=== PATIENT | female | born 1940 | race Caucasian/White ===

== ENCOUNTER → 2017-01-10 | Outpatient (CLI) | payer OTHER ==
[~2017-01-10] MED LIST: AMLO-110 PO; ASPCH81X PO; ASPI81TA28 PO; BENA20TA14 PO; BISO2.5T PO; CALC500T83 PO; CALCCAP15 PO; LEVO50TA PO; MAGN1TAB28 PO; MULTCHW3 PO; SIMV20TA2 PO; ZINC1TAB PO
[2017-01-10 13:38] LABS: BASO % 0.4 %; BASO ABS # 0.02 K/uL (0-0.2); COMPLETE YES; EOS % 1.8 %; HEMATOCRIT 46.1 % (37-47); IG% 0.4 %; LYMPH ABS # 1.47 K/uL (1.2-3.4); MEAN CELL VOLUME 92.9 fL (80-100); MEAN CORPUSCULAR HGB CONC 33.4 g/dl (32-36); MEAN PLATELET VOLUME 11.2 fL (7.4-10.4); MONO % 7.5 %; NEUT % 62.9 %; PLATELET COUNT 318 K/uL (130-400); RED BLOOD COUNT 4.96 M/uL (4.2-5.4); WHITE BLOOD COUNT 5.45 K/uL (4.8-10.8)
[2017-01-10 13:49] LABS: PROTHROMBIN TIME (PATIENT) 10.3 SECONDS (9.0-12.0)
[2017-01-10 14:03] LABS: BLOOD UREA NITROGEN 13 mg/dl (7-18); CREATININE 0.73 mg/dl (0.60-1.20); GLUCOSE 104 mg/dl (70-99)
[2017-01-10 14:04] LABS: ALT/SGPT 49 U/L (12-78); AST/SGOT 27 U/L (15-37); BUN/CREATININE RATIO 18.4 (10-20); CARBON DIOXIDE 27 mmol/L (21-32); CHLORIDE 106 mmol/L (98-107); CHOLESTEROL 175 mg/dl (0-200); POTASSIUM 4.3 mmol/L (3.5-5.1); SODIUM 140 mmol/L (136-145); TRIGLYCERIDES 121 mg/dl (0-150); VERY LOW DENSITY LIPOPROT CALC 24 mg/dl
[2017-01-10 14:07] LABS: ALB/GLOB RATIO 1.1 (0.9-2); ALKALINE PHOSPHATASE 95 U/L (45-117); CHOLESTEROL/HDL RATIO 3.7; HDL CHOLESTEROL 47 mg/dl; LDL CHOLESTEROL CALCULATED 104 mg/dl
[2017-01-10 15:02] LABS: CALCIUM 10.1 mg/dl (8.5-10.1)
== END | disposition home or self-care (01) ==
LOC: C.LABBC 09:19
PROVIDERS: ATTEND Physician Assistant Medical
DX: Z01.818 Encounter for other preprocedural examination (principal); I10 Essential (primary) hypertension

== ENCOUNTER → 2017-02-18 | Day surgery (SDC) | payer OTHER ==
[2017-01-24 07:41] VITALS: BMI 27.0
[~2017-02-18] VITALS: Ht 162.6 cm; Wt 70.9 kg
[~2017-02-18] MED LIST changes: -ASPI81TA28 PO; -CALCCAP15 PO; +LIDOCAINE HCL 2% 2 ML VIAL (20MG/ML) ONE; -MAGN1TAB28 PO; -MULTCHW3 PO; +PROPOFOL IV EMULSION 10 MG/ML 20 ML VIAL IV ONE; -ZINC1TAB PO
[2017-02-18 13:16] VITALS: Ht 162.6 cm; Wt 70.9 kg
--- NOTE | 2017-02-18 13:44 | Endo History and Physical ---
History & Physical Date of Service: Feb 18, 2017. Chief Complaint: screening, hx diverticulosis Referring Physician: Dr. Samuel Booth History of Present Illness 76 yo CF who presents for screening colonoscopy. Past Medical History High Cholesterol, Hypertension, Thyroid Disease Past Surgical History Hx Cardiac Surgery: No Hx Internal Defibrillator: No Hx Pacemaker: No Hx Abdominal Surgery: Yes (PARTIAL HYSTERECTOMY) Hx of Implantable Prosthesis: No Hx Post-Op Nausea and Vomiting: No Hx Cancer Surgery: No Hx Thoracic Surgery: No Hx Orthopedic: Yes (RT KNEE ARTHROSCOPY) Hx Urinary Tract Surgery: No Family History None Social History Smoking Status: Never Smoker Hx Substance Use: No Hx Alcohol Use: Yes (VERY RARELY) Allergies Coded Allergies: Cefaclor (Verified Allergy, Unknown, HIVES, 02/18/17) Current Medications Reported Home Medications Medications Dose Route/Sig Max Daily Dose Days Date Category Dose Instructions Aspirin Chewable (Aspirin) 81 Mg Chew 81 Mg PO HS 01/24/17 Reported Zocor (Simvastatin) 20 Mg Tab 20 Mg PO QPM 12/28/13 Reported Synthroid (Levothyroxine Sodium) 50 Mcg Tab 50 Mcg PO QAM 12/28/13 Reported Calcium 500 Mg Tab 500 Mg PO QAM 12/28/13 Reported Bisoprolol Fumarate/[place] (Bisoprolol & Hydrochlorothiazi) 1 Tab Tab 1 Tab PO QAM 12/28/13 Reported 2.5-6.25 MG DOSE Lotensin (Benazepril HCl) 20 Mg Tab 20 Mg PO QAM 12/28/13 Reported Norvasc (Amlodipine Besylate) 5 Mg Tab 5 Mg PO QAM 12/28/13 Reported Vital Signs Weight (Kilograms): 70.91 Height (Feet): 5 Height (Inches): 4 Date Time Temp Pulse Resp B/P (MAP) Pulse Ox O2 Delivery O2 Flow Rate FiO2 02/18/17 13:26 36.4 64 20 144/69 (94) 95 Room Air Physical Exam General Appearance: WD/WN, no apparent distress Respiratory/Chest: Auscultation: breath sounds normal Cardiovascular: Heart Auscultation: RRR Abdomen: Bowel Sounds: normal Inspection & Palpation: soft, non-distended, no tenderness, guarding & rebound Assessment and Plan Assessment: 76 yo CF who presents for screening colonoscopy. Plan: Proceed with colonoscopy.
--- NOTE | 2017-02-18 14:20 | Discharge Instructions ---
Endoscopy Patient Instructions Date / Procedure(s) Performed Feb 18, 2017. Colonoscopy Allergy Information Coded Allergies: Cefaclor (Verified Allergy, Unknown, HIVES, 02/18/17) Discharge Date / Findings Feb 18, 2017. Colon polyps Diverticulosis Internal hemorrhoids Medication Instructions OK to resume all medications today as prescribed Reported Home Medications Medications Dose Route/Sig Max Daily Dose Days Date Category Dose Instructions Aspirin Chewable (Aspirin) 81 Mg Chew 81 Mg PO HS 01/24/17 Reported Zocor (Simvastatin) 20 Mg Tab 20 Mg PO QPM 12/28/13 Reported Synthroid (Levothyroxine Sodium) 50 Mcg Tab 50 Mcg PO QAM 12/28/13 Reported Calcium 500 Mg Tab 500 Mg PO QAM 12/28/13 Reported Bisoprolol Fumarate/[place] (Bisoprolol & Hydrochlorothiazi) 1 Tab Tab 1 Tab PO QAM 12/28/13 Reported 2.5-6.25 MG DOSE Lotensin (Benazepril HCl) 20 Mg Tab 20 Mg PO QAM 12/28/13 Reported Norvasc (Amlodipine Besylate) 5 Mg Tab 5 Mg PO QAM 12/28/13 Reported Provider Instructions Activity Restrictions - No exercising or heavy lifting for 24 hours. - Do not drink alcohol the day of the procedure. - Do not drive a car or operate machinery until the day after the procedure. - Do not make any important decisions or sign important papers in 24 hours after the procedure. Following Day: - Return to full activity which may include returning to work/school. Diet Start your diet with liquids and light foods (jello, soup, juice, toast). Then eat your usual diet if not nauseated. Treatment For Common After Affects For mild abdominal pain, bloating, or excessive gas: - Rest - Eat lightly - Lie on right side Follow-Up Information Follow-up with Dr. Samuel Booth as scheduled Anesthesia Information What You Should Know You have had a procedure that required some medicine to reduce anxiety and discomfort. This treatment is called moderate sedation. After receiving the treatment, you may be sleepy, but you will be able to breathe on your own. The effects of the treatment may last for several hours. Follow these instructions along with Activity/Diet recommendations noted above: * Do NOT do anything where dizziness or clumsiness would be dangerous. * Rest quietly at home today, then you can be up and about tomorrow. * Have a responsible person stay with you the rest of today. * You may have had an I.V. today. If so, you may take the dressing off later today. Recommendations Call your doctor if: * Trouble breathing * Continuous vomiting for more than 24 hours * Temperature above 101 degrees * Severe abdominal pain or bloating * Pain not relieved by pain medicine ordered * There is increased drainage or redness from any incision * A large amount of rectal bleeding greater than 2-3 tablespoons. (If you had a polyp/s removed or have hemorrhoids, a small amount of blood - from the rectum is to be expected.) * You have any unanswered questions or concerns. IN THE EVENT OF A SERIOUS EMERGENCY, GO TO THE NEAREST EMERGENCY ROOM Your discharge instructions were prepared by provider Jhony Dooley. Patient Instructions Signature Page Luba Marin Patient (or Guardian) Signature/Date: I have read and understand the instructions given to me by my caregivers. Caregiver/RN/Doctor Signature/Date: The above-named patient and/or guardian has received patient instructions on this date. + Original Patient Signature Page (only) stays with chart. Please make copy for patient.
--- NOTE | 2017-02-18 14:25 | GI REPORT ---
Procedure Date: 02/18/2017 1:50 PM Procedure: Colonoscopy Indications: High risk colon cancer surveillance: Personal history of colonic polyps Medicines: Monitored Anesthesia Care Complications: No immediate complications. Estimated Blood Loss: Estimated blood loss: none. Procedure: Pre-Anesthesia Assessment: - Prior to the procedure, a History and Physical was performed, and patient medications and allergies were reviewed. The patient's tolerance of previous anesthesia was also reviewed. The risks and benefits of the procedure and the sedation options and risks were discussed with the patient. All questions were answered, and informed consent was obtained. Prior Anticoagulants: The patient has taken aspirin, last dose was 5 days prior to procedure. ASA Grade Assessment: II - A patient with mild systemic disease. After reviewing the risks and benefits, the patient was deemed in satisfactory condition to undergo the procedure. After I obtained informed consent, the scope was passed under direct vision. Throughout the procedure, the patient's blood pressure, pulse, and oxygen saturations were monitored continuously. The scope was introduced through the anus and advanced to the terminal ileum. The colonoscopy was performed without difficulty. The patient tolerated the procedure well. The quality of the bowel preparation was good. The terminal ileum, ileocecal valve, appendiceal orifice, and rectum were photographed. Findings: A 5 mm polyp was found in the ascending colon. The polyp was sessile. The polyp was removed with a hot snare. Resection and retrieval were complete. A 7 mm polyp was found in the sigmoid colon. The polyp was flat. The polyp was removed with a piecemeal technique using a hot snare. Resection and retrieval were complete. Scattered small-mouthed diverticula were found in the entire colon. Non-bleeding internal hemorrhoids were found during retroflexion. The hemorrhoids were small. Impression: - One 5 mm polyp in the ascending colon, removed with a hot snare. Resected and retrieved. - One 7 mm polyp in the sigmoid colon, removed piecemeal using a hot snare. Resected and retrieved. - Diverticulosis in the entire examined colon. - Non-bleeding internal hemorrhoids. Recommendation: - Resume previous diet. - Continue present medications. - Repeat colonoscopy for surveillance based on pathology results. - Return to primary care physician as previously scheduled. Jhony Dooley DO 02/18/2017 2:24:35 PM This report has been signed electronically. Note Initiated On: 02/18/2017 1:50 PM I attest to the content of the Intraoperative Record and orders documented therein, exceptions below
[2017-02-18 14:51] VITALS: BP 135/70; PULSE 58; O2SAT 97
--- NOTE | 2017-02-18 14:53 | Anesthesiology Progress Note ---
Anesthesia Post Op Note Date & Time Feb 18, 2017 at 14:53 Vital Signs Pain Intensity: 0 Vital Signs Past 12 Hours Date Time Temp Pulse Resp B/P (MAP) Pulse Ox O2 Delivery O2 Flow Rate FiO2 02/18/17 14:36 60 20 113/64 (80) 96 Room Air 02/18/17 14:21 60 16 108/64 (79) 95 Room Air 02/18/17 13:26 36.4 64 20 144/69 (94) 95 Room Air Notes Mental Status: alert / awake / arousable, participated in evaluation Pt Amnestic to Procedure: Yes Nausea / Vomiting: adequately controlled Pain: adequately controlled Airway Patency, RR, SpO2: stable & adequate BP & HR: stable & adequate Hydration State: stable & adequate Anesthetic Complications: no major complications apparent
== END | disposition home or self-care (01) ==
LOC: C.GI 12:55
PROVIDERS: ATTEND Internal Medicine
DX: Z12.11 Encounter for screening for malignant neoplasm of colon (principal); D12.2 Benign neoplasm of ascending colon; D12.5 Benign neoplasm of sigmoid colon; K64.8 Other hemorrhoids; K57.90 Diverticulosis of intestine, part unspecified, without perforation or abscess without bleeding; Z86.010 Personal history of colon polyps; E78.00 Pure hypercholesterolemia, unspecified; I10 Essential (primary) hypertension; E07.9 Disorder of thyroid, unspecified; Z79.82 Long term (current) use of aspirin; Z90.710 Acquired absence of both cervix and uterus

== ENCOUNTER → 2017-03-21 | Outpatient (CLI) | payer OTHER ==
[~2017-03-21] MED LIST changes: -LIDOCAINE HCL 2% 2 ML VIAL (20MG/ML) ONE; -PROPOFOL IV EMULSION 10 MG/ML 20 ML VIAL IV ONE
--- NOTE | 2017-03-22 13:59 | MAMMOGRAPHY REPORT ---
BILATERAL DIGITAL SCREENING MAMMOGRAM TOMOSYNTHESIS WITH CAD: 03/21/2017 CLINICAL HISTORY: Routine screening. Patient has no complaints. TECHNIQUE: Breast tomosynthesis in addition to standard 2D mammography was performed. Current study was also evaluated with a Computer Aided Detection (CAD) system. COMPARISON: Comparison is made to exams dated: 03/20/2016 mammogram, 01/06/2015 mammogram, 07/31/2013 ammogram - [facility], 07/29/2012 mammogram, 04/09/2011 mammogram, and [facility]. BREAST COMPOSITION: The tissue of both breasts is heterogeneously dense, which may obscure small mas ses. FINDINGS: No suspicious masses, calcifications, or areas of architectural distortion are noted in ei ther breast. There has been no significant interval change compared to prior exams. Small bilateral circumscribed benign-appearing masses are again noted and likely represent cysts, with cyst seen on m ultiple prior ultrasound exams. 2 biopsy marker clips are again noted in the left breast. Bilateral benign-appearing calcifications are not significantly changed. IMPRESSION: ACR BI-RADS CATEGORY 2: BENIGN There is no mammographic evidence of malignancy. A 1 year screening mammogram is recommended. The pa tient will receive written notification of the results. Approximately 10% of breast cancers are not detected with mammography. A negative mammographic report should not delay biopsy if a clinically suggestive mass is present. Yadi Ramirez M.D. /:03/21/2017 15:25:56 Automotive Repair Technician: Karina SCHAFFER(Duran)(M), [facility] letter sent: Normal 1/2 BI-RADS Code: ACR BI-RADS Category 2: Benign
== END | disposition home or self-care (01) ==
LOC: C.MAMM 11:32
PROVIDERS: ATTEND Internal Medicine
DX: Z12.31 Encounter for screening mammogram for malignant neoplasm of breast (principal)

== ENCOUNTER 2017-06-22 10:15 | Emergency (ER) | payer OTHER ==
[~2017-06-22] VITALS: Ht 152.4 cm
[2017-06-22 10:20] VITALS: TEMP 36.4; Ht 152.4 cm
[2017-06-22] MEDS ORDERED: SOAP SUDS ENEMA PR STA (10:38)
--- NOTE | 2017-06-22 10:53 | EMERGENCY ROOM VISIT NOTE ---
History Report prepared by Mark: Ranjeet Friedman Under the Supervision of: Dr. Hardy Bryant M.D. First contact with patient: 10:25 Chief Complaint: GI ASSESSMENT Stated Complaint: BOWEL Nursing Triage Summary: pt reports rectal pain states she feels like she has brick there. has been eating lots of cheese. has used dulcolax last night and ate prunes this am no relief History of Present Illness The patient is a 76 year old female who presents to the Emergency Room with complaints of persistent constipation for the past few days. The patient states that she feels like she has been backed up, and she used Dulcolax last night, and she had coffee and prune juice this morning. She feels like there is a stool ball there. She denies any nausea, vomiting, abdominal pain, leg swelling , fevers, chills, chest pain, and shortness of breath. The patient denies any history of bowel obstructions. The patient states that she has had a partial hysterectomy, and she has a history of hemorrhoids found during a colonoscopy. Source of History: patient Onset: a few days Position: other (global) Quality: other (constipation) Timing: other (persistent) Associated Symptoms: No fevers, No chills, No chest pain, No SOB, No nausea , No vomiting, No abdominal pain Review of Systems See HPI for pertinent positives & negatives. A total of 6 systems reviewed and were otherwise negative. Past Medical & Surgical Medical Problems: (1) Hemorrhoids Surgical Problems: (1) History of partial hysterectomy Social History Smoking Status: Never Smoker Marital Status: Occupation Status: retired Current/Historical Medications Scheduled Amlodipine (Norvasc), 5 MG PO QAM Aspirin (Aspirin Chewable), 81 MG PO HS Benazepril (Lotensin), 20 MG PO QAM Bisoprolol & Hydrochlorothiazi (Bisoprolol Fumarate/[place]), 1 TAB PO QAM Calcium Carbonate-Cholecalcife (Calcium Plus Vitamin D3), 2 CAP PO DAILY Levothyroxine Sodium (Synthroid), 50 MCG PO QAM Magnesium-Zinc (Magnesium/Chelated Zinc), 1 TAB PO DAILY Multiple Vitamins W/ Minerals (Centrum), 1 TAB PO DAILY Simvastatin (Zocor), 20 MG PO QPM Allergies Coded Allergies: Cefaclor (Verified Allergy, Unknown, HIVES, 06/22/17) Physical Exam Vital Signs Date Time Temp Pulse Resp B/P (MAP) Pulse Ox O2 Delivery O2 Flow Rate FiO2 06/22/17 11:46 69 18 189/103 96 06/22/17 10:20 36.4 73 18 187/106 95 Room Air Physical Exam GENERAL: Patient is well appearing and in minimal distress. HEENT: No acute trauma, normocephalic atraumatic, mucous membranes moist, no nasal congestion, no scleral icterus. NECK: No stridor, no adenopathy, no meningismus, trachea is midline. LUNGS: No dyspnea. Clear to auscultation and equal bilaterally. No wheeze, no rhonchi. HEART: Regular rate and rhythm. No murmurs, rubs, gallops appreciated. ABDOMEN: Soft, nontender, mildly hypoactive bowel sounds, no masses appreciated , no peritonitis. BACK: No midline tenderness, no CVA tenderness RECTAL: Left anterior, non-thrombosed, non-tender hemorrhoids. No bleeding. Large firm stool ball in the rectal vault. Brown non-bloody stool. EXTREMITIES: Normal motion all extremities, no cyanosis, no edema. NEUROLOGIC: Alert and oriented, no acute motor or sensory deficits, no focal weakness, cranial nerves grossly intact. SKIN: No rash, no jaundice, no diaphoresis. Medical Decision & Procedures Medications Administered Medications (Trade) Dose Ordered Sig/Ryland Route Start Time Stop Time Status Last Admin Dose Admin Miscellaneous (Soap Suds Enema) 1 ea NOW STAT ME 06/22/17 10:38 06/22/17 10:40 DC 06/22/17 10:38 1 EA Procedure Fecal Disimpaction: I discussed the pros and cons, and she agreed to proceed with the disimpaction. I performed a manual disimpaction with removal of large stool ball. Patient tolerated the procedure well. No bleeding. ED Course 1025: The patient was evaluated in room B9. A complete history and physical exam was performed. 1038: Soap Suds Enema ME 1128: Reevaluated the patient. The patient had a large bowel movement, and she is feeling much better. The patient would like to go home. She will be discharged home. Medical Decision Differential diagnosis: Etiologies such as functional constipation, impaction, obstruction, volvulus, metabolic abnormality, infection, neurologic, as well as others were entertained. 76 yr old female notes increased cheese consumption and now with constipation. Large stool ball removed from rectum. Large BM with enema. Completely resolved discomfort. Discussed daily stool softeners. She has absolutely no abdominal TTP nor any further complaints. Reviewed symptoms requiring RTED. Medication Reconcilliation Current Medication List: was personally reviewed by me Blood Pressure Screening Patient's blood pressure: Elevated blood pressure Blood pressure disposition: Referred to PCP Impression Primary Impression: Constipation Additional Impression: Hypertension Scribe Attestation The scribe's documentation has been prepared under my direction and personally reviewed by me in its entirety. I confirm that the note above accurately reflects all work, treatment, procedures, and medical decision making performed by me. Departure Information Dispostion Home / Self-Care Referrals Samuel Booth M.D. (PCP) Forms HOME CARE DOCUMENTATION FORM, IMPORTANT VISIT INFORMATION Patient Instructions ED Constipation, My [facility] Additional Instructions Your blood pressure was elevated during this visit. This is quite common in many people who are being evaluated in the Emergency Department for many reasons. However, it is important that you have your Primary Care Provider recheck your blood pressure and discuss whether treatment will be needed. termite control servicer elevated blood pressure can lead to strokes, heart attacks, kidney failure amongst other medical issues. If you develop severe headaches, chest pain, weakness in arms or legs, or other concerning symptoms call 911. Problem Qualifiers
[2017-06-22] MEDS ORDERED: ZINC1TAB PO (11:17)
[2017-06-22] MEDS ORDERED: MULTCHW3 PO (11:17)
[2017-06-22] MEDS ORDERED: MAGN1TAB28 PO (11:17)
[2017-06-22] MEDS ORDERED: CALCCAP15 PO (11:17)
[2017-06-22 11:46] VITALS: BP 189/103; PULSE 69; O2SAT 96
== END 2017-06-22 11:47 | disposition home or self-care (01) ==
LOC: C.EDB 10:17
DX: K59.00 Constipation, unspecified (principal); I10 Essential (primary) hypertension; Z90.711 Acquired absence of uterus with remaining cervical stump; Z98.890 Other specified postprocedural states; Z79.82 Long term (current) use of aspirin

== ENCOUNTER → 2017-06-24 | Outpatient (CLI) | payer OTHER ==
[~2017-06-24] MED LIST changes: -CALC500T83 PO; +CALCCAP15 PO; +MAGN1TAB28 PO; +MULTCHW3 PO
== END | disposition home or self-care (01) ==
LOC: C.MAMM 11:06
PROVIDERS: ATTEND Internal Medicine
DX: E21.3 Hyperparathyroidism, unspecified (principal)

== ENCOUNTER → 2018-03-24 | Outpatient (CLI) | payer OTHER ==
[~2018-03-24] MED LIST changes: -AMLO-110 PO; +AMLO5TAB3 PO
--- NOTE | 2018-03-26 13:53 | MAMMOGRAPHY REPORT ---
BILATERAL DIGITAL SCREENING MAMMOGRAM TOMOSYNTHESIS WITH CAD: 03/24/2018 CLINICAL HISTORY: Routine screening. Patient has no complaints. TECHNIQUE: The study was acquired using full field digital technology and interpreted from soft copy. Breast tomosynthesis in addition to standard 2D mammography was performed. Current study was also ev aluated with a Computer Aided Detection (CAD) system. COMPARISON: Comparison is made to exams dated: 03/21/2017 mammogram, 03/20/2016 mammogram, 02/08/2015 ma mmogram, 01/06/2015 mammogram, 07/31/2013 mammogram - [facility], and 07/29/2012 [facility] mogram. BREAST COMPOSITION: The tissue of both breasts is heterogeneously dense, which may obscure small mass es. FINDINGS: There is a possible cluster of calcifications and associated focal asymmetry in the upper o uter posterior left breast, for which additional spot magnification views and possible ultrasound are recommended. A linear scar marker overlies the 12:00 to 1:00 anterior left breast. There are 2 stable metallic bi opsy marker clips also in the left breast. No other suspicious mass, architectural distortion or clus ter of microcalcifications is seen. IMPRESSION: ACR BI-RADS CATEGORY 0: INCOMPLETE EVALUATION: NEED ADDITIONAL IMAGING EVALUATION The possible cluster of calcifications and associated focal asymmetry in the upper outer posterior le ft breast needs additional evaluation. The patient will be called to schedule an appointment. Some breast cancers are not detected with mammography. A negative mammographic report should not caryn y biopsy if a clinically suggestive mass is present. Yana Ellis M.D. ay/:03/25/2018 21:18:48 Gas Operation Manager: RT Vicki(Duran)(M), [facility] letter sent: Addl Imaging 0 BI-RADS Code: ACR BI-RADS Category 0: Incomplete Evaluation: Need Additional Imaging Evaluation
== END | disposition home or self-care (01) ==
LOC: C.MAMM 11:14
PROVIDERS: ATTEND Internal Medicine
DX: Z12.31 Encounter for screening mammogram for malignant neoplasm of breast (principal); N64.89 Other specified disorders of breast

== ENCOUNTER → 2018-04-02 | Outpatient (CLI) | payer OTHER ==
--- NOTE | 2018-04-02 13:39 | MAMMOGRAPHY REPORT ---
UNILATERAL LEFT DIGITAL DIAGNOSTIC MAMMOGRAM TOMOSYNTHESIS AND TARGETED LEFT ULTRASOUND: 04/02/2018 CLINICAL HISTORY: Callback from screening mammogram for left breast asymmetry and left breast calcifi cations. TECHNIQUE: Breast tomosynthesis in addition to standard 2D mammography was performed. Spot magnifica tion left CC and MLO views and spot compression left CC and MLO tomosynthesis images were obtained. COMPARISON: Comparison is made to exams dated: 03/24/2018 mammogram, 03/21/2017 mammogram, 03/20/2016 ma mmogram, 02/08/2015 mammogram, 01/06/2015 mammogram, and 02/08/2015 ultrasound - [facility] C enter. BREAST COMPOSITION: The tissue of left breast is heterogeneously dense, which may obscure small chloe s. FINDINGS: Spot magnification views demonstrate a 7 mm group of amorphous calcifications in the left upper outer quadrant. The nodular asymmetry associated with the calcifications is less prominent on the additio nal spot compression views and appears more similar to prior exams including the 2013 exam on the add itional views. No discrete mass, architectural distortion, or other suspicious corresponding abnorma lity is seen on the additional views in this region. In addition, the calcifications appear similar on the spot magnification views to prior exams including the 2016 exam, and in retrospect the calcifi cations have been seen in this region dating back to 2013 exam. Targeted ultrasound was performed of the left upper outer quadrant in the region of the mammographic asymmetry and calcifications. No clear sonographic correlate for the mammographic asymmetry and calc ifications is seen. No suspicious mass or other suspicious sonographic abnormality is evident. A fe w small cysts were seen during the exam, including a 6 mm anechoic simple cyst in the left 1:00 peria reolar breast. Given the mammographic stability to at least 2015, the calcifications and asymmetry are probably jluis gn. Therefore, a short interval follow-up in 6 months was recommended. However, the patient reports that she will be in [place] over the winter and will not return until December, therefore, a six-month fo llow-up cannot be performed. Therefore, recommend stereotactic biopsy for definitive characterizatio n. IMPRESSION: ACR BI-RADS CATEGORY 4: SUSPICIOUS, ULTRASOUND ACR BI-RADS CATEGORY 4: SUSPICIOUS Grouped calcifications and associated asymmetry in the left upper outer quadrant are not significantl y changed mammographically dating back to at least the 2015 exam and therefore the finding is probabl y benign. A six-month follow-up was recommended, however, the patient will be in [place] for the win ter and cannot return for the short interval follow-up. Therefore, stereotactic biopsy is recommende d for definitive characterization. A phone call was made to the physician's office to confirm faxed results were received. The patient has been verbally notified of the results. She tentatively scheduled the biopsy before l eaving the department. Some breast cancers are not detected with mammography. A negative mammographic report should not caryn y biopsy if a clinically suggestive mass is present. Yadi Ramirez M.D. ah/:04/02/2018 12:35:20 Cyber Ops Planner: RT Mily(R)(M), [facility]; Yadi Ramirez MD, [facility] letter sent: Abnormal 4/5 OVERALL STUDY BIRADS: 4 Suspicious abnormality
== END | disposition home or self-care (01) ==
LOC: C.MAMM 10:32
PROVIDERS: ATTEND Internal Medicine
DX: N64.9 Disorder of breast, unspecified (principal); R92.1 Mammographic calcification found on diagnostic imaging of breast